=== PATIENT | female | born 1965 | race Hispanic/Latino ===

== ENCOUNTER 2018-08-28 14:36 | Outpatient (AMBR) | payer MEDICAID, SELFPAY ==
--- NOTE | 2018-08-28 18:50 | PT.ODS1RPT ---
PT OP Progress/Discharge Note Date of Service: August 28, 2018 Progress Note/DC Note Progress Note/Discharge Note: DC Note Patient Information Visit Reasons: left knee Service Continue Service or Discharge: Discharge Discharge Date: 08/28/18 Status Subjective: Pt reports the knee is doing better and she is ready to be done with therapy Objective: L knee AROM: Flexion: 120 deg Extension: full SLR: 55 deg Strength: quads 4+/5 Squat to 50% depth x10 Rx provided by Dariana Suazo DAYCARE DIRECTOR and D/C note by Alex Boogie PT Assessment: Pt has attended 5/5 Rx visits and made good improvement with squat tolerance and quad strength and have met those therapy goals. She can ascend/descend 1 flight of stairs with some discomfort but overall less subjective pain with ADL's and HH chores. Plan: D/C with [facility] Office Procedures PT Procedures PT Date of Service: 08/28/18 Therapeutic Exercise 30 minutes: Yes
--- NOTE | 2018-08-28 18:53 | PTNOTE_ITS ---
PT OP Progress/Discharge Note Date of Service: August 28, 2018 Progress Note/DC Note Progress Note/Discharge Note: DC Note Patient Information Visit Reasons: left knee Service Continue Service or Discharge: Discharge Discharge Date: 08/28/18 Status Subjective: Pt reports the knee is doing better and she is ready to be done with therapy Objective: L knee AROM: Flexion: 120 deg Extension: full SLR: 55 deg Strength: quads 4+/5 Squat to 50% depth x10 Rx provided by Dariana Suazo LATIN PROFESSOR and D/C note by Alex Boogie PT Assessment: Pt has attended 5/5 Rx visits and made good improvement with squat tolerance and quad strength and have met those therapy goals. She can ascend/descend 1 flight of stairs with some discomfort but overall less subjective pain with ADL's and HH chores. Plan: D/C with [facility] Office Procedures PT Procedures PT Date of Service: 08/28/18 Therapeutic Exercise 30 minutes: Yes
== END 2018-09-17 23:59 | disposition home or self-care (01) ==
PROVIDERS: PCP Physician Assistant; Referring Provider Physician Assistant; Visit Provider Physician Assistant
DX: M25.562 Pain in left knee (principal)
CPT/HCPCS: 97110